=== PATIENT | female | born 1955 | race Caucasian/White ===

== ENCOUNTER 2021-12-01 10:25 | Outpatient (CLI) | payer BC, MEDICARE, SELFPAY ==
--- NOTE | 2021-12-01 11:20 | XRR_ITS ---
PROCEDURE INFORMATION: Exam: XR Chest Exam date and time: 12/01/2021 11:46 AM Age: 66 years old Clinical indication: Wheezing. Coughing. Heaviness in chest. Pneumonia? Not feeling well for 2 weeks. Asthmatic breathing/wheezes. TECHNIQUE: Imaging protocol: XR of the chest. Views: 2 views. COMPARISON: No relevant prior studies available. FINDINGS: Lungs: Nodular density in the medial left upper lobe superior to the aortic knob. This nodular density measures 1.4 cm. This could represent a true pulmonary nodule or may be artifactual related to summated overlapping osseous structures. No pulmonary consolidation. Pleural spaces: No pleural effusion. No pneumothorax. Heart/Mediastinum: The cardiac silhouette is unremarkable. Probable calcified lymph node at the left hilum. No gross evidence of pneumomediastinum. Bones/joints: No gross fracture. XR/XR chest 2V* [id number] IMPRESSION: Nodular density in the medial left upper lobe superior to the aortic knob (1.4 cm). This could represent a true pulmonary nodule or may be artifactual related to summated overlapping osseous structures. Recommend CT chest to better characterize.
== END 2021-12-01 10:26 | disposition home or self-care (01) ==
LOC: RAD 10:42
PROVIDERS: PCP Nurse Practitioner Family; Visit Provider Nurse Practitioner Family
DX: R06.2 Wheezing (principal)
CPT/HCPCS: 71046